=== PATIENT | female | born 1970 | race Caucasian/White ===

== ENCOUNTER 2016-12-03 17:01 | Emergency (ER) | payer BC ==
[~2016-12-03] VITALS: Ht 162.6 cm; Wt 72.5 kg
[~2016-12-03 17:01] MED LIST: AMIT50 PO; BUSP10 PO; CYCL1PAK PO; DICL75 PO; DICY1TAB26 PO; ESOM1CAP6 PO; ESTR30V VAGINAL; PHEN12.5 PR; PRIL40CA PO; ROBA750T3 PO; SUCR1S PO; TOPI50TA4 PO; VALA500T PO; VENL-39 PO; XANA0.5T PO; ZOFR4TAB3 SL
[2016-12-03 17:02] VITALS: BP 122/77; PULSE 106; RESP 18; TEMP 98; O2SAT 100
--- NOTE | 2016-12-03 17:32 | PD ---
HPI . Low back pain radiating to the right leg Chief Complaint: Pain: Acute or Chronic Time Seen by Provider: 17:20 Travel History International Travel<30 days: No Contact w/Intl Traveler<30days: No Traveled to known affect area: No History of Present Illness HPI 46-year-old female with history of chronic migraines, scleroderma, GERD, herpes and herniated disc at L4-L5 here with complaints of lower back pain radiating to her right leg. Patient tells me that all of a sudden pain started earlier today and woke her up out of her bed. She is complaining of excruciating pain shooting down her right leg. She has had pain in the past, but nothing as severe as today. She says the pain is the most severe (10/10) she has ever experienced. She denies any over exertion or activities that may have triggered this. She denies any bowel or bladder dysfunction. She denies any saddle anesthesia. She is accompanied by her . [facility] Past Medical History Arthritis: Yes Anxiety: Yes GERD: Yes Immunizations Current: Yes Migraines: Yes ?: Not Past Surgical History Gynecologic Surgery: Yes (oomphorectomy) Hysterectomy: Yes Other Surgery: Yes (nasal surgery) Social History Alcohol Use: Yes (occas) Tobacco Use: No Substance Use: No Allergies-Medications (Allergen,Severity, Reaction): Coded Allergies: Penicillin (Verified Allergy, Severe, 05/29/16) hives Reported Meds & Prescriptions Reported Meds & Active Scripts Active Robaxin (Methocarbamol) 500 Mg Tab 500 Mg PO TID Reported Valtrex (Valacyclovir HCl) 500 Mg Tab 500 Mg PO DAILY Xanax (Alprazolam) 0.5 Mg Tab 0.5 Mg PO BID PRN Aleve (Naproxen Sodium) 220 Mg Tab 220-440 Mg PO BID PRN Plaquenil (Hydroxychloroquine Sulfate) 200 Mg Tab 200 Mg PO BID Take with food Prilosec (Omeprazole Magnesium) 20 Mg Tab 40 Mg PO DAILY Effexor (Venlafaxine HCl) 75 Mg Tab 75 Mg PO DAILY Amitriptyline (Amitriptyline HCl) 75 Mg Tab 75 Mg PO HS Topamax (Topiramate) 50 Mg Tab 50 Mg PO BID Review of Systems General / Constitutional: No: Fever Eyes: No: Visual changes HENT: No: Headaches Cardiovascular: No: Chest Pain or Discomfort Respiratory: No: Shortness of Breath Gastrointestinal: No: Abdominal Pain Genitourinary: No: Dysuria Musculoskeletal: Positive: Pain (back and right leg) Skin: No Rash Neurologic: No: Weakness Psychiatric: No: Depression Endocrine: No: Polydipsia Hematologic/Lymphatic: No: Easy Bruising Physical Exam Narrative GENERAL: AAO x 3, no acute distress, Well-nourished, well-developed patient. SKIN: Warm and dry. No visible rashes or bruising. HEAD: Normocephalic and atraumatic. EYES: No scleral icterus. No injection or drainage. ENT: No nasal drainage noted. . Airway patent. NECK: Supple, trachea midline. No JVD. CARDIOVASCULAR: Regular rate and rhythm without murmurs, gallops, or rubs. RESPIRATORY: Breath sounds equal bilaterally. No accessory muscle use. No rhonchi or rales. GASTROINTESTINAL: Abdomen soft, non-tender, nondistended. EXTREMITIES: No cyanosis or edema. SLR ++ on right, strength is normal b/l. Tenderness to palpation of gluteus that shoots pain to right leg. BACK: Nontender without obvious deformity. No CVA tenderness. NO spinal tenderness. No paraspinal tenderness. PSYCH: AAO x 3, normal affect. Data Data Last Documented VS Vital Signs Date Time Temp Pulse Resp B/P Pulse Ox O2 Delivery O2 Flow Rate FiO2 12/03/16 17:02 98.0 106 18 122/77 100 Orders Orphenadrine Inj (Norflex Inj) (12/03/16 17:45) Ketorolac Inj (Toradol Inj) (12/03/16 17:45) MDM Medical Decision Making Medical Screen Exam Complete: Yes Emergency Medical Condition: Yes Medical Record Reviewed: Yes Differential Diagnosis sciatica, lumbar radiculopathy, spinal stenosis, less likely cauda equina Narrative Course 46-year-old female with history of chronic migraines, scleroderma, GERD, herpes and herniated disc at L4-L5 here with complaints of lower back pain radiating to her right leg. Patient tells me that all of a sudden pain started earlier today and woke her up out of her bed. She is complaining of excruciating pain shooting down her right leg. She has had pain in the past, but nothing as severe as today. She says the pain is the most severe she has ever experienced. She denies any over exertion or activities that may have triggered this. She denies any bowel or bladder dysfunction. She denies any saddle anesthesia. She is accompanied by her . Patient seen and examined. She appears to have sciatica. Imaging not indicated. Patient does not have any bowel or bladder dysfunction. She has no saddle anesthesia. She has chronic issues with L4-L5, likely causing these issues. I provided her with Norflex and Toradol in the emergency department I will send her home with a course of muscle relaxers. She used to take in the past, but was taken off of them. I've advised her that if her symptoms persist past 7-10 days, that she will need to follow-up with primary care provider. I've explained to her that often times sciatica is improved with physical therapy and other modalities. Pain reassessed at 1801: pain is down from 10/10 to 6/10 Patient verbalized understanding of instructions, questions were answered, and thanked me for their care. I advised them if their condition worsens, please return to the nearest emergency room for further care. Diagnosis Primary Impression: Sciatica of right side Additional Impression: Lumbago Qualified Code: M54.41 - Chronic right-sided low back pain with right-sided sciatica Patient Instructions: General Instructions, Sciatica (ED) Additional Instructions: Please return to emergency department if your symptoms return or worsen. Follow up with your primary care provider. Take medications as prescribed. Muscle relaxers can cause drowsiness. Do not drive, swim or operate heavy machinery while using these medications. If your symptoms do not improve in 7-10 days, please follow-up with primary care provider. Med/Other Pt SpecificInfo: Prescription(s) given Scripts Methocarbamol (Robaxin)500 Mg [id number] Mg PO TID #21 TAB Ref 0 Prov:Kaya Mcdaniel MD 12/03/16 Disposition: 01 DISCHARGE HOME Condition: Stable Donna Muhammad Dec 03, 2016 17:32
[2016-12-03] MEDS ORDERED: ROBA500T PO (17:33)
[2016-12-03] MEDS ORDERED: VENL75TA PO (17:41)
[2016-12-03] MEDS ORDERED: PLAQ200T PO (17:41)
[2016-12-03] MEDS ORDERED: ALPR.5 PO (17:41)
[2016-12-03] MEDS ORDERED: PRIL20TA2 PO (17:41)
[2016-12-03] MEDS ORDERED: AMIT75TA2 PO (17:41)
[2016-12-03] MEDS ORDERED: NAPR220T95 PO (17:41)
[2016-12-03] MEDS ORDERED: VALT500T PO (17:41)
[2016-12-03] MEDS ORDERED: TOPA50TA7 PO (17:41)
[2016-12-03] MEDS ORDERED: ORPHENADRINE INJ 60 MG/2 ML AMP IM ONE (17:45)
[2016-12-03] MEDS ORDERED: KETOROLAC TROMETHAMINE 60 MG/2 ML (IM) VIAL IM ONE (17:45)
[2017-02-06] MEDS ORDERED: GABA300C5 PO (10:22)
[2017-02-06] MEDS ORDERED: AMBI10TA PO (10:22)
[2017-02-06] MEDS ORDERED: EVOX30CA2 PO (10:22)
[2017-02-07] MEDS ORDERED: HYDR-3288 PO (10:59)
== END 2016-12-03 18:10 | disposition home or self-care (01) ==
LOC: NEPD 17:01
DX: M54.41 Lumbago with sciatica, right side (principal); K21.9 Gastro-esophageal reflux disease without esophagitis
CPT/HCPCS: 96372; 99283; J1885; J2360

== ENCOUNTER → 2017-02-07 | Day surgery (SDC) | payer BC, OTHER ==
[~2017-02-07] VITALS: Ht 162.6 cm; Wt 75.7 kg
[~2017-02-07] MED LIST changes: +*morphine SULFATE 8 MG/ML PERIprocedure ONLY ONE; +ACETAMINOPHEN 1000 MG/100 ML VIAL IV ONE; +ACETAMINOPHEN/HYDROcodone 325 MG/7.5 MG TAB PO PRN; +ALPR.5 PO; +AMBI10TA PO; -AMIT50 PO; +AMIT75TA2 PO; +BETAMETHASONE SOD PHOS/ACETATE SUSP 30 MG/5 ML VIAL IM ONE; +BUPIVACAINE/EPINEPHRINE 0.5% PF 10 ML VIAL ONE; -BUSP10 PO; +CHLORHEXIDINE GLUCONATE 2 % 1 PACK (2 CLOTHS) TOPICAL PRN; -CYCL1PAK PO; -DICL75 PO; -DICY1TAB26 PO; +DO NOT ADM ANY ANTICOAGULANT DRUGS PRN; -ESOM1CAP6 PO; -ESTR30V VAGINAL; +EVOX30CA2 PO; +GABA300C5 PO; +GELATIN 12 MM/7 MM FOAM ONE; +GENTAMICIN SULFATE 80 MG/2 ML VIAL ONE; +HYDR-3288 PO; +INSULIN HUMAN REGULAR 1,000 UNITS/10 ML VIAL SQ PRN; +KETOROLAC TROMETHAMINE 60 MG/2 ML (IM) VIAL IM ONE; +LACTATED RINGER'S 1000 ML INJ 1,000 ML IV ONE; +LACTATED RINGER'S 1000 ML INJ 1,000 ML IV SCH; +LACTATED RINGER'S 1000 ML IV PRN; +MAGNESIUM SULFAT 1 GM PREMIX 100 ML x2 bags IV SCH; +METOPROLOL TARTRATE 25 MG TAB PO PRN; +MORPHINE SULFATE 4 MG/ML INJ IV PUSH PRN; +NEOSTIGMINE 3 MG/3 ML SYR IV ONE; +ONDANSETRON HCL 4 MG/2 ML VIAL IV PUSH ONE; -PHEN12.5 PR; +PHENYLEPH/NS 1000 MCG/10 ML SYR IV ONE; +PLAQ200T PO; +POVIDONE IODINE 5% (ANTISEPSIS KIT) 4 APPLICATIONS EACH NARE PRN; +POVIDONE IODINE 7.5% SCRUB 118 ML BOTTLE TOPICAL SCH; +PRIL20TA2 PO; -PRIL40CA PO; +PROPOFOL 200 MG/20 ML AMP IV ONE; -ROBA750T3 PO; +SODIUM CHLORID 0.9% 500 ML IV PRN; +SODIUM CHLORIDE 10 ML FLUSH BID IV FLUSH SCH; +SODIUM CHLORIDE 10 ML FLUSH PRN IV FLUSH; -SUCR1S PO; +TOPA50TA7 PO; -TOPI50TA4 PO; -VALA500T PO; +VALT500T PO; -VENL-39 PO; +VENL75TA PO; -XANA0.5T PO; -ZOFR4TAB3 SL; +ceFAZolin 2 GM PREMIX 50 ML IV SCH; +ceFAZolin INJ 1,000 MG VIAL ONE; +ePHEDrine/NS 25 MG/5 ML SYR IV ONE; +fentaNYL CITRATE 250 MCG/5 ML AMP ONE
--- NOTE | 2017-02-07 05:13 | MH ---
cc: PADMA HOFFMAN M.D. DATE OF ADMISSION: 02/07/2017 ADMISSION DIAGNOSIS Far lateral disk herniation L4-5. HISTORY This patient is a 44-year-old female with significant right hip and leg pain. Investigative studies shows evidence of a disk herniation far lateral to the right at L4-5. Despite conservative care the patient continued painful and symptomatic. She presents for surgical treatment. PAST MEDICAL HISTORY, SOCIAL HISTORY, FAMILY HISTORY, REVIEW OF SYSTEMS See attached notes. PHYSICAL EXAMINATION GENERAL: Average build female in moderate distress with her right hip and leg. HEENT: Normocephalic, atraumatic. Pupils equal, round, reactive to light and accommodation. Extraocular motions intact. NECK: Supple. CHEST: Clear. HEART: Regular rate and rhythm. ABDOMEN: Soft, nontender with normoactive bowel sounds. MUSCULOSKELETAL EXAMINATION: The thoracolumbar spine with restricted motion, pain with range of motion. Straight leg raise is positive on the right, negative on the left. Motor examination shows weakness right anterior tibialis. IMPRESSION 1. Herniated nucleus pulposus L4-5, right, far lateral. 2. Right lumbosacral radiculopathy. PLAN Far lateral exposure of L4, L5, lateral recess decompression, resection herniated nucleus pulposus, use of dilation port and microscope. CONSENT There are risks with surgery including infection, bleeding, loss of motion, continued pain, need for further surgery, neurologic and vascular injury. The patient understands these issues and wishes to press on with the surgery as outlined above. MD ESTEVAN Miner/TENA /10:39 PM /5:13 AM
[2017-02-07 07:51] VITALS: BP 95/61; PULSE 92; RESP 18; TEMP 98.6; O2SAT 98
--- NOTE | 2017-02-07 10:57 | PD.OP ---
cc: Blue Ruvalcaba MD Operative Report Date of Surgery: Feb 07, 2017 Preoperative Diagnosis: Herniated nucleus pulposus L4 5, right, far lateral. Right L4 radiculopathy Postoperative Diagnosis: Same Procedure: Far lateral exposure right, L4 5 with resection herniated nucleus pulposus. Use of dilation port and microscope Anesthesia: Gen. Surgeon: Blue Ruvalcaba Manager Of Tires Sales(s): KEYSHA Spivey Operation and Findings: EBL: Minimal cc INDICATION: This patient is a 47-year-old female with significant right leg pain involving compression of the right L4 nerve root in the foramen from a far lateral disc at the L4-L5 level. By injections and conservative care with medications and time, the patient continued to have pain and weakness. She presents for surgical treatment. NOTE: Ida Spivey PA-C was present for the entire surgical procedure as my senior administrative assistant. In my medical opinion her skill and care was necessary for the proper management of this patient. PROCEDURE: The patient was brought to the operating room and anesthetized in the supine position. The patient was rolled to a prone position on a Lonnie frame on a Jarvis table. All pressure points were protected in the back was scrubbed with alcohol followed by Hibiclens followed by ChloraPrep and draped sterilely. A timeout was done and antibiotics were given. AP and lateral radiographic images were used to identify the proper levels and perform skin markings. We started from the right side at the L4 5 level. A paramedian incision was made and an off-midline fascial incision was made. We placed a dilating probe down to the cephalad edge of the lower transverse process. This was opened allowing excellent exposure using a proper length retractor. The microscope was rolled into the field. Intraoperative radiographs used to confirm proper level and positioning. Under the microscope the outer portion of the facet joint was removed with a high-speed bur. Hemostasis was controlled. The intertransverse process ligament was taken down from the cephalad border of the caudad transverse process. The exiting nerve root was identified. The medial edge was protected carefully. We were able to work underneath the nerve root from below. There was a large sequestered fragment of disc underneath the nerve root in a far lateral position. This disc was removed. We entered into the disc space removing additional disc fragments. We able to check all the way up to the cephalad pedicle. There was no nerve root compression. We did not need to go above the nerve root to ensure that there was adequate decompression. At the end of the case the exiting nerve root was without nerve root compression. No significant bleeding was encountered. The wound was irrigated copiously. A small piece of Gelfoam with Celestone was placed into the area of surgical dissection. Hemostasis was controlled. The deep fascia was approximated with interrupted 0 Vicryl suture subcutaneous suture with 2-0 Vicryl suture and skin with running intradermal 3-0 Vicryl followed by Dermabond. A field block with local anesthesia was utilized. A sterile dressing was applied. The sponge count and needle counts and instrument counts were all correct. The patient tolerated the procedure well as taken to the recovery room in satisfactory condition. FINDINGS: Was evidence of a large sequestered fragment at the disc space at that had migrated cephalad under the L4 nerve root. The nerve root compression was completely relieved. There was no complication. Blue Ruvalcaba. Feb 07, 2017 10:57
--- NOTE | 2017-02-07 13:42 | RADRPT ---
EXAM DATE/TIME: 02/07/2017 09:49 [facility] COMPARISON: CT ABDOMEN & PELVIS W CONTRAST, April 22, 2015, 16:18. INDICATIONS : Herniated disk. MEDICAL HISTORY : None. SURGICAL HISTORY : None. ENCOUNTER: Initial ACUITY: 1 day PAIN SCORE: 0/10 LOCATION: Right lumbar spine. FINDINGS: A single lateral view of the lumbar spine was performed. There is a probe and directed towards the L 4-L5 level. Heath Sesay MD on February 07, 2017 at 13:36 Board Certified Radiologist. This report was verified electronically.
[2017-02-07 13:45] VITALS: BP 108/60; PULSE 97; RESP 18; TEMP 97.8; O2SAT 96
== END | disposition home or self-care (01) ==
LOC: HSDC 07:18
PROVIDERS: ATTEND Orthopaedic Surgery Orthopaedic Surgery of the Spine
DX: M51.16 Intervertebral disc disorders with radiculopathy, lumbar region (principal); I10 Essential (primary) hypertension; K21.9 Gastro-esophageal reflux disease without esophagitis; Z88.0 Allergy status to penicillin
CPT/HCPCS: 63030; 72020; 76000; J0131; J0690; J0702; J1580; J1885; J2270; J2370; J2405; J2710; J3010; J7120